=== PATIENT | female | born 1960 | race Caucasian/White ===

== ENCOUNTER → 2022-10-14 14:37 | Outpatient (BNVA) | payer MEDICARE, SELFPAY | PROVIDERS: PCP Family Medicine; Visit Provider Nurse Practitioner | DX: G40.909 Epilepsy, unspecified, not intractable, without status epilepticus (principal); F03.90 Unspecified dementia, unspecified severity, without behavioral disturbance, psychotic disturbance, mood disturbance, and anxiety | CPT/HCPCS: 36415; 80175; 82607; 84443; 96116; 99204 ==

== ENCOUNTER → 2022-11-03 12:48 | Outpatient (BNVA) | payer MEDICARE, SELFPAY | PROVIDERS: PCP Family Medicine; Referring Provider Nurse Practitioner; Visit Provider Specialist | DX: G40.909 Epilepsy, unspecified, not intractable, without status epilepticus (principal) | CPT/HCPCS: 95812; 95816 ==

== ENCOUNTER 2022-11-04 13:31 | Outpatient (CLI) | payer MEDICARE, SELFPAY ==
--- NOTE | 2022-11-04 13:45 | MR_ITS ---
WS: [id number] MRI HEAD WITH CONTRAST TECHNIQUE: Sagittal T1, T2 axial, T2 axial FLAIR, axial susceptibility weighted imaging, axial diffus ion weighted images, and coronal T2 images were obtained. Pre and post-T1 axial and post T1 coronal i mages. ADC and FSPGR images. CLINICAL INFORMATION: G40.909 - Epilepsy, unspecified, not intractable, without... COMPARISON: None FINDINGS: No evidence of restricted diffusion to suggest acute ischemia. Ventricular system and basal cisterns are patent. Moderate small vessel changes. Mild parenchymal volume loss. Chronic infarct with encepha lomalacia and gliosis in the anterior LEFT temporal lobe extending into the mesial temporal lobe. Add itional chronic infarcts involving the RIGHT parasagittal frontal lobe and LEFT aguila radiata with e ncephalomalacia and gliosis. Normal posterior fossa. Normal vascular flow voids at the skull base. No extra-axial fluid collection s. No evidence of mass or mass effect. Paranasal sinuses are well aerated. Mastoid air cells well aer ated. Normal posterior nasopharynx. Normal parapharyngeal fat. Normal optic chiasm and pituitary infundibulum. Normal cavernous sinuses and Meckel's cave. Chronic h emosiderin associated with the chronic RIGHT frontal infarct. No abnormal gadolinium enhancement. Normal visualized dural venous sinuses. MR/MR head wo/w con [id number] IMPRESSION: 1. No evidence of restricted diffusion to suggest acute ischemia. 2. Chronic infarct involving the LEFT anterior temporal lobe with encephalomal acia and gliosis. This involves the mesial temporal lobe and hippocampal format ion anteriorly. 3. RIGHT temporal lobe and hippocampal formation normal in appearance. 4. Additional chronic infarcts involving the RIGHT parasagittal frontal lobe a nd LEFT aguila radiata with encephalomalacia and gliosis. Small amount of hemos iderin associated with the chronic RIGHT frontal cortical infarct. 5. Moderate small vessel changes with mild parenchymal volume loss. 6. No other acute findings.
[2022-11-04] MEDS: gadobenate dimeglumine 20 mL vial IV (15:12)
== END 2022-11-04 13:32 | disposition home or self-care (01) ==
PROVIDERS: PCP Family Medicine; Visit Provider Nurse Practitioner
DX: G40.909 Epilepsy, unspecified, not intractable, without status epilepticus (principal); R41.3 Other amnesia; I63.89 Other cerebral infarction
CPT/HCPCS: 70553; A9577

== ENCOUNTER → 2024-01-07 14:08 | Outpatient (BNVA) | payer MEDICARE, SELFPAY | PROVIDERS: PCP Family Medicine; Referring Provider Family Medicine; Visit Provider Specialist | DX: G40.219 Localization-related (focal) (partial) symptomatic epilepsy and epileptic syndromes with complex partial seizures, intractable, without status epilepticus (principal); F03.B4 Unspecified dementia, moderate, with anxiety | CPT/HCPCS: 99215 ==

== ENCOUNTER → 2024-08-08 12:14 | Outpatient (BNVA) | payer MEDICARE, SELFPAY | PROVIDERS: PCP Family Medicine; Visit Provider Specialist | DX: F03.B4 Unspecified dementia, moderate, with anxiety (principal); R41.3 Other amnesia; G40.219 Localization-related (focal) (partial) symptomatic epilepsy and epileptic syndromes with complex partial seizures, intractable, without status epilepticus; R03.0 Elevated blood-pressure reading, without diagnosis of hypertension | CPT/HCPCS: 96116; 99214 ==

== ENCOUNTER → 2025-05-09 13:13 | Outpatient (BNVA) | payer MEDICARE, SELFPAY | PROVIDERS: PCP Family Medicine; Visit Provider Specialist | DX: F03.B4 Unspecified dementia, moderate, with anxiety (principal); R41.3 Other amnesia; G40.219 Localization-related (focal) (partial) symptomatic epilepsy and epileptic syndromes with complex partial seizures, intractable, without status epilepticus; R03.0 Elevated blood-pressure reading, without diagnosis of hypertension | CPT/HCPCS: 36415; 82542; 83520; 99214 ==